=== PATIENT | male | born 2000 | race Caucasian/White ===

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

== ENCOUNTER 2021-06-09 08:16 | Emergency (ER) | payer OTHER ==
[~2021-06-09 08:16] MED LIST changes: +PROTONIX40 MG PO; +ZOFRAN4 MG PO
[2021-06-09 08:50] LABS: HEMOGLOBIN 15.3 gm/dl (14.0-17.5); RED BLOOD COUNT 5.6 M/UL (4.20-5.50); WHITE BLOOD COUNT 6.4 K/UL (4.5-11.0)
[2021-06-09 09:08] LABS: BUN/CREATININE RATIO 14 (0-10)
[2021-06-09] MEDS ORDERED: ZOFRAN4 MG PO (09:46)
== END 2021-06-09 10:04 | disposition home or self-care (01) ==
LOC: ER1 08:16
PROVIDERS: Physician Assistant
DX: R10.9 Unspecified abdominal pain (principal); R19.7 Diarrhea, unspecified; R10.813 Right lower quadrant abdominal tenderness; R11.0 Nausea
CPT/HCPCS: 80053; 81001; 82150; 83690; 85025; 96374; 99284; J2405; Q9967